=== PATIENT | male | born 1975 | race Caucasian/White ===

== ENCOUNTER 2018-08-24 09:32 | Day surgery (SDC) | payer BC ==
[2018-08-24] MEDS ORDERED: Ondansetron PF 4 MG/2 ML Vial ONE (09:52)
[2018-08-24] MEDS ORDERED: Maxitrol 0.1% Opth Oint 3.5 GM TUBE ONE (09:52)
[2018-08-24] MEDS ORDERED: PROPOFOL 200 MG/20 ML VIAL ONE (09:52)
[2018-08-24] MEDS ORDERED: Triamcinolone 40 MG/ML VIAL ONE (09:52)
[2018-08-24] MEDS ORDERED: Atropine Sulfate 1% Ophth Ointment 3.5 gm Tube ONE (09:52)
[2018-08-24] MEDS ORDERED: PHENYLEPHRINE-NS 100 MCG/ML 10 ML SYRINGE ONE (09:52)
[2018-08-24] MEDS ORDERED: Lidocaine 1% PF 5 ML VIAL ONE ×2 (09:52)
[2018-08-24] MEDS ORDERED: diphenhydrAMINE 50 MG/ML VIAL ONE (09:52)
[2018-08-24] MEDS ORDERED: Lidocaine 4% PF 5 ML AMP ONE (09:52)
[2018-08-24] MEDS ORDERED: CEFAZOLIN 1 GM VIAL ONE (09:52)
[2018-08-24] MEDS ORDERED: Bupivacaine 10 ML VIAL ONE (09:52)
[2018-08-24] MEDS ORDERED: Cyclopentolate 1% Opth Drop 2 ML BOT ONE (10:52)
[2018-08-24] MEDS ORDERED: Phenylephrine 2.5% Ophth Soln 5 ML BOT ONE (10:52)
[2018-08-24] MEDS ORDERED: Midazolam HCl 2 mg/2 ml Vial ONE (12:37)
[2018-08-24] MEDS ORDERED: Fentanyl 100 MCG/2 ML VIAL ONE ×2 (12:37→14:21)
--- NOTE | 2018-08-24 21:21 | OP ---
DATE OF PROCEDURE: 08/24/2018 PREOPERATIVE DIAGNOSES: Rhegmatogenous retinal detachment, right eye, lattice degeneration, left eye. PROCEDURE PERFORMED: Scleral buckle, right eye. Laser barricade, left eye. ANESTHESIA: General endotracheal anesthesia. PROCEDURE IN DETAIL: The patient identified in the preoperative holding area. Appropriate informed consent for the planned surgical procedures on both eyes was obtained. The patient was taken to the operative suite where general endotracheal anesthesia was initiated. Retrobulbar block was placed in the right eye. A 360 laser barricade was placed using indirect laser delivery in the left eye. Barricade laser to attached retinal areas of retina in the right eye was also performed at this time. The eye was prepped and draped in usual sterile manner for ophthalmic surgery in the right eye. Lid speculum was placed in the right eye, 360 conjunctival peritomy was created by sharp dissection with Jose scissors. Adequate hemostasis was obtained. A #41 band was encircled around the eye and a 287 WG was placed in the superotemporal 6 o'clock hours. Buckle was fixated into place with 5-0 M[place]il[place] sutures in the oblique quadrant. The ends of the 41 band were ligated together with 3083 sleeve, centered at 10 o'clock. External drain was created at the 9 o'clock radian and good drainage of subretinal fluid was obtained. Cryotherapy was placed above the breaks at 12 o'clock and 10 o'clock. The scleral buckle was tightened. Optic nerve was noted to be perfused. Retrobulbar Kenalog and subconjunctival Ancef were placed. Additionally, a retrobulbar block was placed. Conjunctiva was closed with 6-0 plain gut suture. Atropine ointment and antibiotic ointment were placed and the eye was patched and shielded. The patient was advised to position the right side down. Followup appointment with Dr. Yang. Job ID: [id number]
== END 2018-08-24 16:45 | disposition home or self-care (01) ==
LOC: SDC 09:32
PROVIDERS: ATTEND Ophthalmology Retina Specialist
PROC: 08QF3ZZ Repair Left Retina, Percutaneous Approach (ICD-10-PCS; principal; 2018-08-24)
PROC: 08U00JZ Supplement of Right Eye with Synthetic Substitute, Open Approach (ICD-10-PCS; principal; 2018-08-24)
DX: H33.021 Retinal detachment with multiple breaks, right eye (principal); H35.412 Lattice degeneration of retina, left eye
CPT/HCPCS: J0690; J1200; J2001; J2250; J2405; J2704; J3010; J3301; J3490

== ENCOUNTER 2019-02-15 08:51 | Day surgery (SDC) | payer BC ==
[2019-02-14 09:10] VITALS: BMI 35.9
[~2019-02-15 08:51] MED LIST: Fentanyl 100 MCG/2 ML VIAL ONE; Fluorouracil 100 MG, Enoxaparin Sodium 25 MG, EPINEPHrine 0.3 MG in Ophthalmic Irrigati... IRR SCH; Midazolam HCl 2 mg/2 ml Vial ONE
[2019-02-15] MEDS ORDERED: Cyclopentolate 1% Opth Drop 2 ML BOT ONE (09:15)
[2019-02-15] MEDS ORDERED: Phenylephrine 2.5% Ophth Soln 5 ML BOT ONE (09:15)
[2019-02-15] MEDS ORDERED: CEFAZOLIN 1 GM VIAL ONE (13:39)
[2019-02-15] MEDS ORDERED: PROPOFOL 200 MG/20 ML VIAL ONE (13:39)
[2019-02-15] MEDS ORDERED: Triamcinolone 40 MG/ML VIAL ONE (13:39)
[2019-02-15] MEDS ORDERED: Metoclopramide HCl 10 MG/2 ML VIAL ONE (13:39)
[2019-02-15] MEDS ORDERED: Ondansetron PF 4 MG/2 ML Vial ONE (13:39)
[2019-02-15] MEDS ORDERED: Atropine Sulfate 1% Ophth Ointment 3.5 gm Tube ONE (13:39)
[2019-02-15] MEDS ORDERED: Bupivacaine PF 0.75% SDV 10 ML ONE (13:39)
[2019-02-15] MEDS ORDERED: Maxitrol 0.1% Opth Oint 3.5 GM TUBE ONE (13:39)
[2019-02-15] MEDS ORDERED: Lidocaine 4% PF 5 ML AMP ONE (13:39)
[2019-02-15] MEDS ORDERED: Lidocaine 1% PF 5 ML VIAL ONE ×2 (13:39)
--- NOTE | 2019-02-16 15:29 | OP ---
DATE OF PROCEDURE: 02/15/2019 PREOPERATIVE DIAGNOSIS: Rhegmatogenous retinal detachment, right eye. POSTOPERATIVE DIAGNOSIS: Rhegmatogenous retinal detachment, right eye. PROCEDURE PERFORMED: Pars plana vitrectomy, retinal detachment repair of right eye. ANESTHESIA: General endotracheal anesthesia. DESCRIPTION OF PROCEDURE: The patient was identified in the preoperative holding area. Appropriate informed consent for the planned surgical procedure on the right eye had been obtained. The patient was transported to the operative suite. Appropriate cardiopulmonary monitoring was established. Local anesthesia was obtained using retrobulbar modified Van Lint lid block using 50:50 mixture of 4% lidocaine and 0.75% bupivacaine. The patient was prepped and draped in usual sterile manner for ophthalmic surgery in the right eye. Lid speculum was placed in the right eye. A 25-gauge trocar was placed in the conjunctiva and sclera superotemporally, inferotemporally, and supranasally. Infusion line was placed inferotemporally. Light pipe vitreous cutter inserted in the eye. Core vitrectomy was performed. Attention was turned to the supratemporal detachment. Posterior drained retinotomy was created along the supratemporal arcade. Complete air-fluid exchange was performed. Barricade laser was placed superotemporally. 28% sulfur hexafluoride gas was infused into the eye. Trocars were removed and all 3 sclerotomy sutures were closed. Retrobulbar Kenalog and subconjunctival Ancef were placed. Antibiotic ointment was placed. Eye was patched and shielded. The patient was taken to postop care unit in good condition, having suffered no immediate perioperative complications. The patient was then advised to position on the right side. Followup appointment with Dr. Yang. Job ID: [id number]
== END 2019-02-15 13:35 | disposition home or self-care (01) ==
LOC: SDC 08:51
PROVIDERS: ATTEND Ophthalmology Retina Specialist
PROC: 08T43ZZ Resection of Right Vitreous, Percutaneous Approach (ICD-10-PCS; principal; 2019-02-15)
DX: H33.001 Unspecified retinal detachment with retinal break, right eye (principal); I10 Essential (primary) hypertension; K21.9 Gastro-esophageal reflux disease without esophagitis; M19.90 Unspecified osteoarthritis, unspecified site; Z79.899 Other long term (current) drug therapy
CPT/HCPCS: 67025; J0171; J0690; J1650; J2001; J2250; J2405; J2704; J2765; J3010; J3301; J3490; J9190